=== PATIENT | male | born 1965 | race Hispanic/Latino ===

== ENCOUNTER 2016-11-05 09:04 | Observation (INO) | payer SELFPAY ==
[2016-11-05 09:08] VITALS: BMI 22.9
--- NOTE | 2016-11-05 10:11 | C.PDOC ---
History Of Present Illness Patient LINDSEY, apparently found on the ground outside. Patient speaks Tajik only, and has difficulty speaking clearly as per flarer. History limited. - HPI Time Seen by Provider: 11/05/16 09:10 Chief Complaint (Nursing): Trauma History Per: EMS History/Exam Limitations: language barrier, other (difficulty speaking clearly) Onset/Duration Of Symptoms: Unknown Past Medical History Reviewed: Historical Data, Nursing Documentation, Vital Signs Vital Signs: Last Vital Signs Temp 97.6 F 11/05/16 16:12 Pulse 76 11/05/16 16:12 Resp 20 11/05/16 16:12 BP 133/83 11/05/16 16:12 Pulse Ox 97 11/12/16 13:18 - Medical History Other PMH: unknown Other Surgeries: presumed - right hip replacement, left craniotomy - [facility] Procedures GAIT TRAINING/AMBULAT TREATMENT USING ASSIST EQUIPMENT (08/05/15) HOME MANAGEMENT TREATMENT (08/05/15) MANUAL THERAPY TECHNIQUES TREATMENT OF MUSCULOSK LOW BACK/LE (08/05/15) REPOSITION RIGHT UPPER FEMUR WITH INT FIX, OPEN APPROACH (06/21/15) THERAPEUTIC EXERCISE TREATMENT OF MUSCULOSK LOW BACK/LE (08/05/15) Family History: States: No Known Family Hx Review Of Systems Review Of Systems: ROS cannot be obtained secondary to pt's inabilty to answer questions. Physical Exam - Physical Exam Appears: Non-toxic, Other (awake, alert) Skin: Other (contusion on occipital scalp, left craniotomy scar left parietal scalp, right hip hip replacement scar ) Eye(s): bilateral: Normal Inspection, PERRL, EOMI Oral Mucosa: Moist Neck: Normal, Normal ROM, No Midline Cervical Tenderness, No Paracervical Tenderness, No Step Off Deformity, Supple Chest: Symmetrical Cardiovascular: Rhythm Regular Respiratory: Normal Breath Sounds, No Rales, No Rhonchi, No Wheezing Gastrointestinal/Abdominal: Normal Exam, Bowel Sounds, Soft, No Tenderness Extremity: No Deformity, No Swelling, Other (contracted RUE) ED Course And Treatment - Laboratory Results Result Diagrams: 11/05/16 10:15 11/05/16 10:15 O2 Sat by Pulse Oximetry: 97 (RA ) Pulse Ox Interpretation: Normal - Other Rad X-Ray - Right Hip X-Ray: Viewed By Me, Read By Radiologist Interpretation: Indication: s/p fall, right hip replacement, r/o fx. Bilateral hip with pelvis. Comparison: None available. Findings: Subtle irregularity about the right greater trochanter suboptimally assessed on this study. Correlate clinically is nondisplaced fracture cannot be entirely excluded. 8 mm ossific/calcific density adjacent to the right acetabulum ; small fracture fragment from unclear donor site cannot be entirely excluded. The remainder the visualized osseous structures appear intact without acute displaced fracture appreciated. Three metallic screws traverse the right proximal femur. Sacroiliac joints appear intact. Mild constipation. Soft tissues appear unremarkable. Impression: Subtle irregularity about the right greater trochanter suboptimally assessed on this study. Correlate clinically as nondisplaced fracture cannot be entirely excluded. 8 mm ossific/calcific density adjacent to the right acetabulum ; small fracture fragment from unclear donor site cannot be entirely excluded. Three metallic screws traverse the right proximal femur. If high clinical index of suspicion, suggest cross- sectional imaging for further evaluation. Otherwise, if symptoms persist or if there is continued clinical concern, x-ray follow-up in 7-10 days should be considered. CXR X-Ray: Viewed By Me, Read By Radiologist Interpretation: HISTORY: SOB. COMPARISON: None available. TECHNIQUE: Chest , one view. FINDINGS: Examination markedly limited by marked patient obliquity and patient condition. LUNGS: No focal consolidation. Please note that chest x-ray has limited sensitivity for the detection of pulmonary masses. PLEURA: No significant pleural effusion identified. No definite pneumothorax . CARDIOVASCULAR: Heart size appears within normal limits. OSSEOUS STRUCTURES : Osseous demineralization. Degenerative changes. VISUALIZED UPPER ABDOMEN: Unremarkable. OTHER FINDINGS: None. IMPRESSION: Limited study as above. No acute findings appreciated. - CT Scan/US CT - Head Other Rad Studies (CT/US): Read By Radiologist, Radiology Report Reviewed CT/US Interpretation: PROCEDURE: CT HEAD WITHOUT CONTRAST. HISTORY: possible head injury, occipital contusion. COMPARISON: None available. TECHNIQUE: Axial computed tomography images were obtained through the head/brain without intravenous contrast. Radiation dose: Total exam DLP = 884.81 mGy-cm. This CT exam was performed using one or more of the following dose reduction techniques: Automated exposure control, adjustment of the mA and/or kV according to patient size, and/or use of iterative reconstruction technique. FINDINGS: HEMORRHAGE: No intracranial hemorrhage. BRAIN: There is large left parietal lobe cystic encephalomalacia with volume loss and ex vacuo dilatation of the left lateral ventricle. 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 Also noted is focal cystic encephalomalacia in the right subcortical anterior parietal lobe. There is no extra-axial fluid collection. VENTRICLES: No hydrocephalus. CALVARIUM: Status post left parietal craniectomy. PARANASAL SINUSES: There is chronic ethmoid and maxillary sinusitis. Also noted is superimposed fluid in the left maxillary sinus. MASTOID AIR CELLS: Predominantly clear. OTHER FINDINGS: None. IMPRESSION: 1. No acute intracranial abnormality. 2. 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 Status post left parietal craniectomy. 3. Focal cystic encephalomalacia in the right anterior subcortical parietal lobe. Progress Note: Blood work, CXR, CT head, pelvis/hips Xray, UA, UDS ordered and reviewed. CT pelvis ordered for further evaluation of hip - (-) for acute fracture. Patient speaks garbled Tajik that is difficult for flarer to understand. His name , PMHx is unknown, it is unclear where he lives or if he has any family - appears to be unsafe discharge. Will discuss with hospitalist. Disposition - Disposition Disposition: HOSPITALIZED Disposition Time: 13:19 Condition: STABLE - Clinical Impression Clinical Impression: Fall, Elevated CK Decision To Admit - Pt Status Changed To: Hospital Disposition Of: Observation - . Bed Request Type: Regular Admitting Physician: Isiah Monterroso Patient Diagnosis: Fall, Elevated CK
[2016-11-05 10:21] LABS: BASO # 0.1 K/uL (0.0-0.2); BASO % 0.7 % (0.0-2.0); EOS # 0.2 K/uL (0.0-0.7); EOS % 1.6 % (0.0-4.0); HEMATOCRIT 39.9 % (35.0-51.0); LYMPH # 1.9 K/uL (1.0-4.3); LYMPH % 17.7 % (20.0-40.0); MEAN CELL VOLUME 88.5 fL (80.0-94.0); MEAN CORPUSCULAR HEMOGLOBIN 29.7 pg (27.0-31.0); MEAN CORPUSCULAR HGB CONC 33.5 g/dL (33.0-37.0); MEAN PLATELET VOLUME 7.2 fL (7.2-11.7); MONO % 9.7 % (0.0-10.0); RED CELL DISTRIBUTION WIDTH 13.5 % (11.5-14.5); WHITE BLOOD COUNT 10.6 K/uL (4.8-10.8)
--- NOTE | 2016-11-05 10:25 | RAD ---
HISTORY: SOB COMPARISON: None available. TECHNIQUE: Chest, one view. FINDINGS: Examination markedly limited by marked patient obliquity and patient condition. LUNGS: No focal consolidation. Please note that chest x-ray has limited sensitivity for the detection of pulmonary masses. PLEURA: No significant pleural effusion identified. No definite pneumothorax . CARDIOVASCULAR: Heart size appears within normal limits. OSSEOUS STRUCTURES: Osseous demineralization. Degenerative changes. VISUALIZED UPPER ABDOMEN: Unremarkable. OTHER FINDINGS: None. IMPRESSION: Limited study as above. No acute findings appreciated.
[2016-11-05 10:26] LABS: RBC URINE 5 /hpf (0-3); URINE BILIRUBIN NEGATIVE (NEGATIVE); URINE BLOOD NEGATIVE (NEGATIVE); URINE COLOR Yellow (YELLOW); URINE GLUCOSE (UA) NORMAL (Normal); URINE KETONE NEGATIVE (NEGATIVE); URINE LEUKOCYTE ESTERASE NEG Leu/uL (Negative); URINE PROTEIN NEGATIVE (NEGATIVE); URINE UROBILINOGEN NORMAL mg/dL (0.2-1.0); WBC URINE 1 /hpf (0-5)
--- NOTE | 2016-11-05 10:38 | RAD ---
Indication: s/p fall, right hip replacement, r/o fx Bilateral hip with pelvis Comparison: None available Findings: Subtle irregularity about the right greater trochanter suboptimally assessed on this study. Correlate clinically is nondisplaced fracture cannot be entirely excluded. 8 mm ossific/calcific density adjacent to the right acetabulum ; small fracture fragment from unclear donor site cannot be entirely excluded. The remainder the visualized osseous structures appear intact without acute displaced fracture appreciated. Three metallic screws traverse the right proximal femur. Sacroiliac joints appear intact. Mild constipation. Soft tissues appear unremarkable. Impression: Subtle irregularity about the right greater trochanter suboptimally assessed on this study. Correlate clinically as nondisplaced fracture cannot be entirely excluded. 8 mm ossific/calcific density adjacent to the right acetabulum ; small fracture fragment from unclear donor site cannot be entirely excluded. Three metallic screws traverse the right proximal femur. If high clinical index of suspicion, suggest cross-sectional imaging for further evaluation. Otherwise, if symptoms persist or if there is continued clinical concern, x-ray follow-up in 7-10 days should be considered.
--- NOTE | 2016-11-05 10:49 | CT ---
PROCEDURE: CT HEAD WITHOUT CONTRAST. HISTORY: possible head injury, occipital contusion COMPARISON: None available. TECHNIQUE: Axial computed tomography images were obtained through the head/brain without intravenous contrast. Radiation dose: Total exam DLP = 884.81 mGy-cm. This CT exam was performed using one or more of the following dose reduction techniques: Automated exposure control, adjustment of the mA and/or kV according to patient size, and/or use of iterative reconstruction technique. FINDINGS: HEMORRHAGE: No intracranial hemorrhage. BRAIN: There is large left parietal lobe cystic encephalomalacia with volume loss and ex vacuo dilatation of the left lateral ventricle. 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 Also noted is focal cystic encephalomalacia in the right subcortical anterior parietal lobe. There is no extra-axial fluid collection. VENTRICLES: No hydrocephalus. CALVARIUM: Status post left parietal craniectomy. PARANASAL SINUSES: There is chronic ethmoid and maxillary sinusitis. Also noted is superimposed fluid in the left maxillary sinus. MASTOID AIR CELLS: Predominantly clear. OTHER FINDINGS: None. IMPRESSION: 1. No acute intracranial abnormality. 2. 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 Status post left parietal craniectomy. 3. Focal cystic encephalomalacia in the right anterior subcortical parietal lobe.
[2016-11-05 10:54] LABS: CHLORIDE 102 mmol/L (98-107); SODIUM 139 mmol/L (132-148)
[2016-11-05 10:55] LABS: POTASSIUM 3.4 mmol/L (3.6-5.2)
[2016-11-05 10:57] LABS: ALB/GLOB RATIO 1.4 (1.0-2.1); ALKALINE PHOSPHATASE 87 U/L (38-126); ALT/SGPT 38 U/L (21-72); AST/SGOT 41 U/L (17-59); BILIRUBIN,TOTAL 0.6 mg/dL (0.2-1.3); BLOOD UREA NITROGEN 11 mg/dL (9-20); CALCIUM 8.9 mg/dl (8.6-10.4); CARBON DIOXIDE 25 mmol/L (22-30); GFR AFRICAN-AMERICAN > 60; GLUCOSE,RANDOM 95 mg/dL (75-110); TOTAL PROTEIN 6.9 g/dL (6.3-8.3)
[2016-11-05 10:58] LABS: ALCOHOL SERUM < 10 mg/dl (0-10)
--- NOTE | 2016-11-05 13:04 | CT ---
PROCEDURE: CT Pelvis without contrast HISTORY: RIGHT HIP POSSIBLE FRACTURE COMPARISON: Bilateral hip with pelvis radiographs performed 11/05/16 TECHNIQUE: Contiguous axial images of the pelvis . No intravenous or oral contrast given. Coronal and sagittal reformats generated and reviewed. Radiation dose: Total exam DLP = 157.40 mGy-cm. This CT exam was performed using one or more of the following dose reduction techniques: Automated exposure control, adjustment of the mA and/or kV according to patient size, and/or use of iterative reconstruction technique. FINDINGS: The included bowel loops appear within normal limits of caliber without evidence of intestinal obstruction. Moderate constipation. The appendix appears within normal limits of caliber. No secondary signs of acute appendicitis. There is no definite free air. The prostate gland measures approximately 5.5 x 6.3 cm. The urinary bladder appears unremarkable. Three metallic screws traverse the right proximal femur. No acute fracture identified. Osseous demineralization. Vascular calcifications. IMPRESSION: No acute fracture identified. Enlarged prostate gland. Recommend correlation with PSA. Moderate constipation. Additional findings as above.
--- NOTE | 2016-11-05 14:08 | CP.PCM.HP ---
<Lien Gomez - Last Filed: 11/05/16 15:03> History of Present Illness - History of Present Illness History of Present Illness: Medicine Note for Dr. Monterroso CC: "witnessed fall" HPI: 57 M with unknown PMHx saravanan in by ambulance after a witnessed fall. As per nurse, patient was seen outside [facility] in [address], [place] where a group of elderly men witnessed the patient fall. Unknown if LOC, as per witnesses no one knew the patient. Translation machine was used: morning show newscast producer for Spanish #[id number]. Patient was unable to tell us his name, address, where he is , or year. Patient responded he has no family here. He confirmed he had a craniotomy and right femur surgery. However patient was not able to respond to other questions, as he was mumbling and not speaking proper Spanish. ROS unattainable. PMHx: Unknown PSHx: left craniotomy and right femur surgery. 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; BASELINE LANGUAGE DEFICIT - MUSCULOSKELETAL/RHEUMATOLOGICAL Hx Musculoskeletal Disorders: Yes (SEE COMMENT) Other/Comment: RIGHT HIP SURGERY/REPLACEMENT?(VISUAL SURGICAL SCAR) - PSYCHIATRIC Hx Substance Use: (Unclear per interpretor) Meds Allergies/Adverse Reactions: Allergies Allergy/AdvReac Type Severity Reaction Status Date / Time Unobtainable Allergy Verified 11/05/16 09:07 Physical Exam - Constitutional Appears: No Acute Distress, Cachectic - Head Exam Head Exam: NORMAL INSPECTION, NORMOCEPHALIC - Eye Exam Eye Exam: EOMI, Normal appearance, PERRL Pupil Exam: NORMAL ACCOMODATION - ENT Exam ENT Exam: Mucous Membranes Moist, Normal Exam - Respiratory Exam Respiratory Exam: Clear to Auscultation Bilateral, NORMAL BREATHING PATTERN - Cardiovascular Exam Cardiovascular Exam: REGULAR RHYTHM, RRR, +S1, +S2 - GI/Abdominal Exam GI & Abdominal Exam: Normal Bowel Sounds, Soft. absent: Distended, Tenderness - Extremities Exam Extremities exam: Positive for: normal inspection, pedal pulses present. Negative for: pedal edema, tenderness Additional comments: Right arm is contracted, cane at bedside. - Neurological Exam Neurological exam: Alert, CN II-XII Intact, Oriented x3 - Psychiatric Exam Psychiatric exam: Normal Affect, Normal Mood - Skin Skin Exam: Dry, Intact, Normal Color, Warm Results - Vital Signs Recent Vital Signs: Last Vital Signs Temp 98.3 F 11/05/16 12:51 Pulse 57 L 11/05/16 12:51 Resp 18 11/05/16 12:51 BP 122/73 11/05/16 12:51 Pulse Ox 97 11/05/16 13:14 - Labs Result Diagrams: 11/05/16 10:15 11/05/16 10:15 Assessment & Plan - Assessment and Plan (Free Text) Plan: Mechanical Fall * Witnessed Fall * Unknown identify?? * Right Hip Xray: Subtle irregularity about the right greater trochanter suboptimally assessed on this study. Correlate clinically as nondisplaced fracture cannot be entirely excluded. 8 mm ossific/calcific density adjacent to the right acetabulum ; small fracture fragment from unclear donor site cannot be entirely excluded. Three metallic screws traverse the right proximal femur. If high clinical index of suspicion, suggest cross-sectional imaging for further evaluation. Otherwise, if symptoms persist or if there is continued clinical concern, x-ray follow-up in 7-10 days should be considered. * Pelvis CT: No acute fracture identified. Enlarged prostate gland. Recommend correlation with PSA. Moderate constipation. Additional findings as above. * Head CT w/o contrast: 1. No acute intracranial abnormality. 2. 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 Status post left parietal craniectomy. 3. Focal cystic encephalomalacia in the right anterior subcortical parietal lobe. * F/U LABS Hx of Left Craniotomy Hx of Right Hip Replacement Prophylactic Measures * GI PPX: Protonix 40mg PO daily * DVT PPX: SCDs * Social work eval Patricia Beaulieu Dr., DO, PGY-1 <Isiah Monterroso - Last Filed: 11/06/16 16:23> Results - Vital Signs Recent Vital Signs: Last Vital Signs Temp 97.6 F 11/05/16 16:12 Pulse 76 11/05/16 16:12 Resp 20 11/05/16 16:12 BP 133/83 11/05/16 16:12 Pulse Ox 98 11/05/16 16:12 - Labs Result Diagrams: 11/05/16 10:15 11/05/16 10:15 Attending/Attestation - Attestation I have personally seen and examined this patient.: Yes I have fully participated in the care of the patient.: Yes I have reviewed all pertinent clinical information: Yes Notes (Text): 11/06/16 16:23 Patient was seen and examined at bedside with the resident I discussed the plan of care with the resident and agree with the history and physical and assessment/plan recommended by the resident.
[2016-11-05] MEDS ORDERED: Sodium Chloride 0.9% 1,000 ML IV SCH (14:30)
[2016-11-05] MEDS ORDERED: Potassium Chloride 20 mEq ER Tab PO ONE ×2 (14:44→14:45)
[2016-11-05] MEDS ORDERED: Sodium Chloride 0.9% 1,000 ML ONE (14:44)
[2016-11-05 16:13] VITALS: BP 133/83; PULSE 76; RESP 20; TEMP 97.6
--- NOTE | 2016-11-05 18:58 | CP.PCM.DIS ---
<PatriciaLien - Last Filed: 11/05/16 19:01> Provider - Provider Date of Admission: 11/05/16 13:19 Attending physician: Isiah Monterroso MD Time Spent in preparation of Discharge (in minutes): 55 Hospital Course - Lab Results Lab Results: Most Recent Lab Values WBC 10.6 K/uL (4.8-10.8) 11/05/16 10:15 RBC 4.51 Mil/uL (4.40-5.90) 11/05/16 10:15 Hgb 13.4 g/dL (12.0-18.0) 11/05/16 10:15 Hct 39.9 % (35.0-51.0) 11/05/16 10:15 MCV 88.5 fL (80.0-94.0) 11/05/16 10:15 MCH 29.7 pg (27.0-31.0) 11/05/16 10:15 MCHC 33.5 g/dL (33.0-37.0) 11/05/16 10:15 RDW 13.5 % (11.5-14.5) 11/05/16 10:15 Plt Count 335 K/uL (130-400) 11/05/16 10:15 MPV 7.2 fL (7.2-11.7) 11/05/16 10:15 Neut % (Auto) 70.3 % (50.0-75.0) 11/05/16 10:15 Lymph % (Auto) 17.7 % (20.0-40.0) L 11/05/16 10:15 [place] % (Auto) 9.7 % (0.0-10.0) 11/05/16 10:15 Eos % (Auto) 1.6 % (0.0-4.0) 11/05/16 10:15 Baso % (Auto) 0.7 % (0.0-2.0) 11/05/16 10:15 Neut # 7.4 K/uL (1.8-7.0) H 11/05/16 10:15 Lymph # 1.9 K/uL (1.0-4.3) 11/05/16 10:15 [place]ancock # 1.0 K/uL (0.0-0.8) H 11/05/16 10:15 Eos # 0.2 K/uL (0.0-0.7) 11/05/16 10:15 Baso # 0.1 K/uL (0.0-0.2) 11/05/16 10:15 Sodium 139 mmol/L (132-148) 11/05/16 10:15 Potassium 3.4 mmol/L (3.6-5.2) L 11/05/16 10:15 Chloride 102 mmol/L (98-107) 11/05/16 10:15 Carbon Dioxide 25 mmol/L (22-30) 11/05/16 10:15 Anion Gap 15 (10-20) 11/05/16 10:15 BUN 11 mg/dL (9-20) 11/05/16 10:15 Creatinine 0.5 MG/DL (0.8-1.5) L 11/05/16 10:15 Est GFR ( Amer) > 60 11/05/16 10:15 Est GFR (Non-Af Amer) > 60 11/05/16 10:15 POC Glucose (mg/dL) 98 mg/dL (65-110) 11/05/16 10:15 Random Glucose 95 mg/dL (75-110) 11/05/16 10:15 Calcium 8.9 mg/dl (8.6-10.4) 11/05/16 10:15 Total Bilirubin 0.6 mg/dL (0.2-1.3) 11/05/16 10:15 AST 41 U/L (17-59) 11/05/16 10:15 ALT 38 U/L (21-72) 11/05/16 10:15 Alkaline Phosphatase 87 U/L (38-126) 11/05/16 10:15 Total Creatine Kinase 228 U/L (55-170) H 11/05/16 10:15 CK-MB (Mass) 5.20 ng/mL (0.0-3.38) H 11/05/16 10:15 Troponin I < 0.0120 ng/mL (0.00-0.120) 11/05/16 10:15 Total Protein 6.9 g/dL (6.3-8.3) 11/05/16 10:15 Albumin 4.1 g/dL (3.5-5.0) 11/05/16 10:15 Globulin 2.9 gm/dL (2.2-3.9) 11/05/16 10:15 Albumin/Globulin Ratio 1.4 (1.0-2.1) 11/05/16 10:15 Urine Color Yellow (YELLOW) 11/05/16 10:07 Urine Clarity Clear (Clear) 11/05/16 10:07 Urine pH 7.0 (5.0-8.0) 11/05/16 10:07 Ur Specific [place] 1.021 (1.003-1.030) 11/05/16 10:07 Urine Protein Negative mg/dL (NEGATIVE) 11/05/16 10:07 Urine Glucose (UA) Normal mg/dL (Normal) 11/05/16 10:07 Urine Ketones Negative mg/dL (NEGATIVE) 11/05/16 10:07 Urine Blood Negative (NEGATIVE) 11/05/16 10:07 Urine Nitrate Negative (NEGATIVE) 11/05/16 10:07 Urine Bilirubin Negative (NEGATIVE) 11/05/16 10:07 Urine Urobilinogen Normal mg/dL (0.2-1.0) 11/05/16 10:07 Ur Leukocyte Esterase Neg Garrett/uL (Negative) 11/05/16 10:07 Urine WBC (Auto) 1 /hpf (0-5) 11/05/16 10:07 Urine RBC (Auto) 5 /hpf (0-3) H 11/05/16 10:07 Amorphous Sediment Rare /ul (<OCC) H 11/05/16 10:07 Urine Opiates Screen Negative (NEGATIVE) 11/05/16 10:07 Urine Methadone Screen Negative (NEGATIVE) 11/05/16 10:07 Ur Barbiturates Screen Positive (NEGATIVE) 11/05/16 10:07 Ur Phencyclidine Scrn Negative (NEGATIVE) 11/05/16 10:07 Ur Amphetamines Screen Negative (NEGATIVE) 11/05/16 10:07 U Benzodiazepines Scrn Negative (NEGATIVE) 11/05/16 10:07 U Oth Cocaine Metabols Negative (NEGATIVE) 11/05/16 10:07 U Cannabinoids Screen Negative (NEGATIVE) 11/05/16 10:07 Alcohol, Quantitative < 10 mg/dl (0-10) 11/05/16 10:15 - Hospital Course Hospital Course: Upon Admission: CC: "witnessed fall" HPI: 57 M with unknown PMHx saravanan in by ambulance after a witnessed fall. As per nurse, patient was seen outside [facility] in [place], [place] where a group of elderly men witnessed the patient fall. Unknown if LOC, as per witnesses no one knew the patient. 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 Patient was unable to tell us his name, address, where he is , or year. Patient responded he has no family here. He confirmed he had a craniotomy and right femur surgery. However patient was not able to respond to other questions, as he was mumbling and not speaking proper Nepali. ROS unattainable. PMHx: Unknown PSHx: left craniotomy and right femur surgery. Meds: Unknown All: Unknown SHx: Unknown FHx: Unknown Throughout Hospital Course: Patient was admitted for mechanical fall. Patient arrived via ambulance, using translation, he was unable to identify who he was, where he was, what it was, or why he was brought in. As per family, he is disabled and his brother and his brother's girlfriend takes care of the patient. As per family, the girlfriend was watching over the patient and somehow he left their apartment on [address] [place] [address] in [place] and ended up near [facility] in [place]. Family requested to take the patient back home. Following imaging ordered: * Right Hip Xray: Subtle irregularity about the right greater trochanter suboptimally assessed on this study. Correlate clinically as nondisplaced fracture cannot be entirely excluded. 8 mm ossific/calcific density adjacent to the right acetabulum ; small fracture fragment from unclear donor site cannot be entirely excluded. Three metallic screws traverse the right proximal femur. If high clinical index of suspicion, suggest cross-sectional imaging for further evaluation. Otherwise, if symptoms persist or if there is continued clinical concern, x-ray follow-up in 7-10 days should be considered. * Pelvis CT: No acute fracture identified. Enlarged prostate gland. Recommend correlation with PSA. Moderate constipation. Additional findings as above. * Head CT w/o contrast: 1. No acute intracranial abnormality. 2. 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 Status post left parietal craniectomy. 3. Focal cystic encephalomalacia in the right anterior subcortical parietal lobe. Patient is to be discharged with family. This is a brief summary of the patient's hospital course, please review EMR. Discharge Exam - Head Exam Head Exam: NORMAL INSPECTION, NORMOCEPHALIC - Eye Exam Eye Exam: EOMI, Normal appearance, PERRL Pupil Exam: NORMAL ACCOMODATION - ENT Exam ENT Exam: Mucous Membranes Moist - Respiratory Exam Respiratory Exam: Clear to PA & Lateral, NORMAL BREATHING PATTERN. absent: Decreased Breath Sounds - Cardiovascular Exam Cardiovascular Exam: REGULAR RHYTHM, RRR, +S1, +S2 - GI/Abdominal Exam GI & Abdominal Exam: Distended, Soft. absent: Tenderness - Extremities Exam Extremities exam: normal inspection, pedal pulses present - Neurological Exam Neurological exam: Alert, Oriented x3 - Psychiatric Exam Psychiatric exam: Normal Affect, Normal Mood - Skin Skin Exam: Dry, Intact, Normal Color, Warm Discharge Plan - Follow Up Plan Condition: GOOD Disposition: HOME/ ROUTINE Instructions: Fall Prevention for Older Adults (GEN), Fall Prevention (DC), Fall Prevention (GEN) Additional Instructions: Patient is to follow up with a PMD within 1 week of discharge. <Isiah Monterroso - Last Filed: 11/06/16 16:24> Provider - Provider Date of Admission: 11/05/16 13:19 Attending physician: Isiah Monterroso MD Hospital Course - Lab Results Lab Results: Most Recent Lab Values WBC 10.6 K/uL (4.8-10.8) 11/05/16 10:15 RBC 4.51 Mil/uL (4.40-5.90) 11/05/16 10:15 Hgb 13.4 g/dL (12.0-18.0) 11/05/16 10:15 Hct 39.9 % (35.0-51.0) 11/05/16 10:15 MCV 88.5 fL (80.0-94.0) 11/05/16 10:15 MCH 29.7 pg (27.0-31.0) 11/05/16 10:15 MCHC 33.5 g/dL (33.0-37.0) 11/05/16 10:15 RDW 13.5 % (11.5-14.5) 11/05/16 10:15 Plt Count 335 K/uL (130-400) 11/05/16 10:15 MPV 7.2 fL (7.2-11.7) 11/05/16 10:15 Neut % (Auto) 70.3 % (50.0-75.0) 11/05/16 10:15 Lymph % (Auto) 17.7 % (20.0-40.0) L 11/05/16 10:15 [place] % (Auto) 9.7 % (0.0-10.0) 11/05/16 10:15 Eos % (Auto) 1.6 % (0.0-4.0) 11/05/16 10:15 Baso % (Auto) 0.7 % (0.0-2.0) 11/05/16 10:15 Neut # 7.4 K/uL (1.8-7.0) H 11/05/16 10:15 Lymph # 1.9 K/uL (1.0-4.3) 11/05/16 10:15 [place] # 1.0 K/uL (0.0-0.8) H 11/05/16 10:15 Eos # 0.2 K/uL (0.0-0.7) 11/05/16 10:15 Baso # 0.1 K/uL (0.0-0.2) 11/05/16 10:15 Sodium 139 mmol/L (132-148) 11/05/16 10:15 Potassium 3.4 mmol/L (3.6-5.2) L 11/05/16 10:15 Chloride 102 mmol/L (98-107) 11/05/16 10:15 Carbon Dioxide 25 mmol/L (22-30) 11/05/16 10:15 Anion Gap 15 (10-20) 11/05/16 10:15 BUN 11 mg/dL (9-20) 11/05/16 10:15 Creatinine 0.5 MG/DL (0.8-1.5) L 11/05/16 10:15 Est GFR ( Amer) > 60 11/05/16 10:15 Est GFR (Non-Af Amer) > 60 11/05/16 10:15 POC Glucose (mg/dL) 98 mg/dL (65-110) 11/05/16 10:15 Random Glucose 95 mg/dL (75-110) 11/05/16 10:15 Calcium 8.9 mg/dl (8.6-10.4) 11/05/16 10:15 Total Bilirubin 0.6 mg/dL (0.2-1.3) 11/05/16 10:15 AST 41 U/L (17-59) 11/05/16 10:15 ALT 38 U/L (21-72) 11/05/16 10:15 Alkaline Phosphatase 87 U/L (38-126) 11/05/16 10:15 Total Creatine Kinase 228 U/L (55-170) H 11/05/16 10:15 CK-MB (Mass) 5.20 ng/mL (0.0-3.38) H 11/05/16 10:15 Troponin I < 0.0120 ng/mL (0.00-0.120) 11/05/16 10:15 Total Protein 6.9 g/dL (6.3-8.3) 11/05/16 10:15 Albumin 4.1 g/dL (3.5-5.0) 11/05/16 10:15 Globulin 2.9 gm/dL (2.2-3.9) 11/05/16 10:15 Albumin/Globulin Ratio 1.4 (1.0-2.1) 11/05/16 10:15 Urine Color Yellow (YELLOW) 11/05/16 10:07 Urine Clarity Clear (Clear) 11/05/16 10:07 Urine pH 7.0 (5.0-8.0) 11/05/16 10:07 Ur Specific [place] 1.021 (1.003-1.030) 11/05/16 10:07 Urine Protein Negative mg/dL (NEGATIVE) 11/05/16 10:07 Urine Glucose (UA) Normal mg/dL (Normal) 11/05/16 10:07 Urine Ketones Negative mg/dL (NEGATIVE) 11/05/16 10:07 Urine Blood Negative (NEGATIVE) 11/05/16 10:07 Urine Nitrate Negative (NEGATIVE) 11/05/16 10:07 Urine Bilirubin Negative (NEGATIVE) 11/05/16 10:07 Urine Urobilinogen Normal mg/dL (0.2-1.0) 11/05/16 10:07 Ur Leukocyte Esterase Neg Garrett/uL (Negative) 11/05/16 10:07 Urine WBC (Auto) 1 /hpf (0-5) 11/05/16 10:07 Urine RBC (Auto) 5 /hpf (0-3) H 11/05/16 10:07 Amorphous Sediment Rare /ul (<OCC) H 11/05/16 10:07 Urine Opiates Screen Negative (NEGATIVE) 11/05/16 10:07 Urine Methadone Screen Negative (NEGATIVE) 11/05/16 10:07 Ur Barbiturates Screen Positive (NEGATIVE) 11/05/16 10:07 Ur Phencyclidine Scrn Negative (NEGATIVE) 11/05/16 10:07 Ur Amphetamines Screen Negative (NEGATIVE) 11/05/16 10:07 U Benzodiazepines Scrn Negative (NEGATIVE) 11/05/16 10:07 U Oth Cocaine Metabols Negative (NEGATIVE) 11/05/16 10:07 U Cannabinoids Screen Negative (NEGATIVE) 11/05/16 10:07 Alcohol, Quantitative < 10 mg/dl (0-10) 11/05/16 10:15 Attending/Attestation - Attestation I have personally seen and examined this patient.: Yes I have fully participated in the care of the patient.: Yes I have reviewed all pertinent clinical information, including history, physical exam and plan: Yes Notes (Text): 11/06/16 16:24 Patient was reported missing with the family. Patient's family arrived and is at bedside Patient will discharge to home with the family No medical issues at this time Patient will follow with his PMD as outpatient.
[2016-11-06] MEDS ORDERED: Pantoprazole 40 mg EC Tab PO SCH (10:00)
--- NOTE | 2016-11-08 18:10 | CARD ---
APPROVED REPORT EKG Measurement Heart [id number] <Conclusion> Normal sinus rhythm Normal ECG
[2016-11-12 13:18] VITALS: O2SAT 97
== END 2016-11-05 19:47 | disposition home or self-care (01) ==
LOC: C.ER 09:04 → MERGE 13:19 → C.9E 13:19 → EDBD 13:19 → C.5T 14:50
PROVIDERS: ADMIT Internal Medicine; ATTEND Internal Medicine
DX: S00.03XA Contusion of scalp, initial encounter (principal); W18.30XA Fall on same level, unspecified, initial encounter; Z96.643 Presence of artificial hip joint, bilateral
CPT/HCPCS: 70450; 71010; 72192; 73521; 80053; 81001; 82550; 82553; 82948; 84484; 85025; G0378; G0480; J7040